=== PATIENT | female | born 1975 | race Caucasian/White ===

== ENCOUNTER → 2017-02-03 | Day surgery (SDC) | payer OTHER ==
[~2017-02-03] MED LIST: AMITRIPTYLINE H25 MG PO; CARAFATE1 G PO; GARCINIA CAMBOGIA; HAIR, SKIN & N1 EAC1 PO; MULTI VITAMIN1 EACH PO; MULTIVITAMIN1 UDCAP PO; OMEPRAZOLE40 MG PO; PANTOPRAZOLE SO40 MG PO; PROTONIX PO
--- NOTE | ~2017-02-03 | OR ---
Unit #: [id number] #: [id number] Patient: STANLEY HAMPTON [id number] [address] [place], [place] [address] [id number] MR#: [id number] NAME: STANLEY HAMPTON ROOM: Date of Procedure: 02/03/2017 Admission Date: 02/03/2017 Surgeon: Gabriel Georges M.D. : 1975 Attending Physician: Gabriel Georges M.D. Primary Care Physician: Mulu Barajas M.D. OPERATIVE REPORT PREOPERATIVE DIAGNOSIS Dysphagia. POSTOPERATIVE DIAGNOSIS Dysphagia. PROCEDURE PERFORMED 1. Esophagogastroduodenoscopy. 2. Biopsy of antrum for Helicobacter pylori testing. ANESTHESIA Monitored anesthesia care. FINDINGS The patient was found to have a large hiatal hernia, mild distal esophagitis. There was no stenosis or stricture present. SPECIMENS Sent to pathology. COMPLICATIONS None apparent. CONDITION The patient tolerated the procedure well. INDICATIONS FOR PROCEDURE The patient is a 41-year-old white female, who says reflux symptoms that at times are resistant to medications. She has some intermittent dysphagia in the area of the distal esophagus with solid food. She presents at this time for evaluation by upper endoscopy. DESCRIPTION OF PROCEDURE After obtaining informed consent, the patient was brought to the endoscopy suite and after adequate monitored anesthesia care, had the endoscope placed through the mouth into the upper esophagus under direct vision. It was slowly advanced with the lumen always in view to the level of the second portion of the duodenum. The second and third portion of the duodenum were normal as was the duodenal bulb. The pylorus opened normally. There was some mild distal gastritis present and a biopsy was obtained for Helicobacter pylori testing. On retroflexion back to the GE junction, the patient had a medium to large hiatal hernia present. No Unit #: [id number] #: [id number] Patient: STANLEY HAMPTON other abnormalities were found in the proximal third, middle third, or incisura. On pulling back above the GE junction, there was no stenosis, stricture, or neoplasm seen. There was some mild distal esophagitis. The remaining portion of the esophagus was within normal limits. Laryngeal structures were grossly normal as viewed from above. The patient tolerated the procedure well and went from the endoscopy suite to recovery area in stable condition. RECOMMENDATIONS Gastroesophageal reflux sheet given. Call tomorrow to discuss results. Dictated by... Antonia Azevedo/meghna TD: 02/03/2017 23:59 JOB #: [id number] CC: [facility] OPERATIVE REPORT Page 1 of 1 X Gabriel Georges MD X PROCEDURE OPERATIVE NOTE
== END | disposition home or self-care (01) ==
LOC: COPS 01-13 09:00
DX: K20.9 Esophagitis, unspecified (principal); K44.9 Diaphragmatic hernia without obstruction or gangrene; K29.70 Gastritis, unspecified, without bleeding; K21.9 Gastro-esophageal reflux disease without esophagitis; F17.210 Nicotine dependence, cigarettes, uncomplicated; G89.29 Other chronic pain; F41.1 Generalized anxiety disorder; Z87.19 Personal history of other diseases of the digestive system; Z88.6 Allergy status to analgesic agent; Z98.890 Other specified postprocedural states
CPT/HCPCS: 84703; 87077; J2250